=== PATIENT | male | born 1980 | race African-American/Black ===

== ENCOUNTER 2023-07-27 12:19 | Emergency (ER) | payer OTHER ==
[2023-07-27] MEDS ORDERED: Ketorolac Tromethamine 30 MG/ML VIAL ONE (13:38)
== END 2023-07-27 13:58 | disposition home or self-care (01) ==
LOC: ERS 12:19
DX: M75.101 Unspecified rotator cuff tear or rupture of right shoulder, not specified as traumatic (principal); M54.12 Radiculopathy, cervical region; F17.210 Nicotine dependence, cigarettes, uncomplicated
CPT/HCPCS: 96372; 99283; J1885